=== PATIENT | male | born 1955 | race Caucasian/White ===

== ENCOUNTER 2016-07-08 22:44 | Emergency (ER) | payer OTHER ==
[~2016-07-08 22:44] MED LIST: ASPIRIN; CLEOCIN HCL300 M1 PO; FLEXERIL PO; IBUPROFEN PO; KEFLEX PO; KEFLEX500 M1 PO; LISINOPRIL PO; LOPID600 MG PO; METFORMIN PO; PLAVIX PO; ULTRAM PO; ZOCOR PO
== END 2016-07-08 23:30 | disposition home or self-care (01) ==
LOC: CED 22:44
DX: L02.214 Cutaneous abscess of groin (principal); I10 Essential (primary) hypertension; E11.9 Type 2 diabetes mellitus without complications; Z90.49 Acquired absence of other specified parts of digestive tract; Z88.5 Allergy status to narcotic agent; Z79.82 Long term (current) use of aspirin; Z79.899 Other long term (current) drug therapy
CPT/HCPCS: 10060; 56405; 82947; 99283

== ENCOUNTER 2016-12-25 23:25 | Emergency (ER) | payer OTHER ==
[~2016-12-25] VITALS: Ht 180.3 cm; Wt 124.7 kg
[2016-12-26 03:31] LABS: BASOPHIL# 0.1 X10e3 (0-0.3); BASOPHIL% 1.2 % (0-2.5); EOSINOPHIL# 0.4 X10e3 (0-0.7); EOSINOPHIL% 3.8 % (0.0-7.0); HEMATOCRIT 44.8 % (38.0-50.0); HEMOGLOBIN 14.9 gm/dL (13.0-16.0); LYMPHOCYTE% 25.9 % (17.0-45.0); MEAN CELL VOLUME 85.8 FL (83-96); MEAN CORPUSCULAR HEMOGLOBIN 28.5 PG (28-34); MEAN CORPUSCULAR HGB CONC 33.3 g/dL (30-36); MEAN PLATELET VOLUME 8.6 FL (6.5-11.5); MONOCYTE# 0.9 X10e3 (0-1.0); MONOCYTE% 7.7 % (3.0-12.0); NEUTROPHIL# 7.2 X10e3 (1.5-7.1); NEUTROPHIL% 61.4 % (40-75); PLATELET COUNT 244 X10e3 (140-420); RED BLOOD COUNT 5.22 X10e (3.90-5.60); RED CELL DISTRIBUTION WIDTH 16.1 % (11.0-15.5); WHITE BLOOD COUNT 11.7 X10e3 (4.0-10.5)
[2016-12-26 03:36] LABS: DIFF IND NO
[2016-12-26 04:00] LABS: CALCIUM SERUM 8.4 mg/dL (8.4-10.2); CREATININE SERUM 1.6 mg/dL (0.6-1.4); GLOM FILT RATE Estimated 46.5 mL/min (>60); POTASSIUM 4.1 mmol/L (3.5-5.1)
== END 2016-12-26 05:15 | disposition home or self-care (01) ==
LOC: CED 23:25
PROVIDERS: Emergency Medicine
DX: L02.415 Cutaneous abscess of right lower limb (principal); E10.9 Type 1 diabetes mellitus without complications; F17.200 Nicotine dependence, unspecified, uncomplicated; Z88.5 Allergy status to narcotic agent
CPT/HCPCS: 10060; 36415; 80048; 82947; 85025; 96361; 96374; 99283